=== PATIENT | male | born 1960 | race Caucasian/White ===

== ENCOUNTER 2017-10-21 17:13 | Emergency (ER) | payer OTHER ==
[2017-10-21] MEDS ORDERED: Ketorolac Tromethamine 30 MG/ML VIAL ONE (18:09)
[2017-10-21 18:14] LABS: #Basophils 0.1 thou/uL (0.0-0.2); #Lymphocytes 1.1 thou/uL (1.20-3.40); #Monocytes 0.4 thou/uL (0.11-0.59); #Neutrophils 11.2 thou/uL (1.40-6.50); %Basophils 0.8 % (0.0-1.0); %Eosinophils 0.3 % (0.0-10.0); %Lymphocytes 8.2 % (21.0-51.0); %Monocytes 3.3 % (0.0-10.0); %Neutrophils 87.3 % (42.0-75.0); Hemoglobin 15.3 g/dL (14.0-18.0); Mean Corpuscular HGB CONC 33.5 g/dL (32.0-36.0); Mean Corpuscular Hemoglobin 31.2 pg (27.0-31.0); Mean Corpuscular Volume 93.4 fl (80.0-94.0); Mean Platelet Volume 6.8 fL (7.4-10.4); Platelet Count 226 thou/uL (130-400); RBC Distribution Width 11.4 % (11.5-14.5); Red Blood Cell (RBC) Count 4.91 mill/uL (4.70-6.10); White Blood Cell (WBC) Count 12.8 thou/uL (4.8-10.8)
[2017-10-21 18:19] LABS: Bilirubin Negative (Negative); Blood, Urine Large (Negative); Clarity Cloudy (Clear); Glucose, Urine (Dipstick) Negative (Negative); Leukocyte Negative (Negative); Nitrite Negative (Negative); Protein, Urine (Dipstick) Negative (Neg-Trace); Specific Gravity, Urine 1.015 (1.005-1.030); Urobilinogen 0.2 mg/dL (0.2-1.0)
[2017-10-21 18:21] LABS: Bacteria/HPF None Seen HPF (None Seen); Crystals/HPF None Seen HPF (Negative); Hyaline Casts/LPF NONE SEEN LPF (0-3 Hyaline); Other Casts/LPF None Seen LPF (0-3 Hyaline); Oval Fat Bodies/HPF None Seen HPF (None Seen); RBC/HPF GREATER THAN 50-TNTC HPF (0-3); Renal Epithelial None Seen HPF (0-3); Sperm/HPF None Seen HPF (None Seen); Squamous Epithelial None Seen HPF (0-3); Transitional Epithelial NONE SEEN HPF (0-3); Trichomonas/HPF None Seen HPF (None Seen); WBC/HPF None Seen HPF (0-3); Yeast-All Forms None Seen HPF (None Seen)
[2017-10-21 18:26] LABS: ALT (SGPT) 28 U/L (8-55); AST (SGOT) 22 U/L (5-34); Albumin 4.3 g/dL (3.5-5.0); Alkaline Phosphatase 70 U/L (40-150); Anion Gap 13 mmol/L (10-20); BUN (Urea Nitrogen) 15 mg/dL (8.4-25.7); Bilirubin, Total 0.7 mg/dL (0.2-1.2); Calc. Creatinine Clearance 0 mL/min (70-130); Calcium 9.5 mg/dL (7.8-10.44); Carbon Dioxide 28 mmol/L (22-29); Chloride 102 mmol/L (98-107); Estimated GFR-MDRD 66; Globulin 3.2 g/dL (2.4-3.5); Glucose 189 mg/dL (70-105); Potassium 4.3 mmol/L (3.5-5.1); Protein, Total 7.5 g/dL (6.0-8.3); Sodium 139 mmol/L (136-145)
--- NOTE | 2017-10-21 20:45 | CT ---
CT ABDOMEN AND PELVIS WITHOUT CONTRAST 10/21/[address] of the abdomen and pelvis was done emergently for evaluation of right flank pain. Axial sli shruthi were acquired, then coronal reconstructions were done. There is a 4 to 5 mm calculus in the mid right ureter at approximately the L5-S1 level. It is causing minimal right hydronephrosis. No renal masses were seen within the limitations of a noncontrast stud y. No large renal calculi were seen. The prostate is mildly enlarged and there may be some mild shaunna ntric thickening of the urinary bladder. Elsewhere, the exam was fairly unremarkable. The lung bases are clear. There are multiple cystic area s scattered throughout the liver, the largest measuring about 2.4 cm in size. These are probably all simple cysts. The hepatic and splenic sizes and appearance of the spleen, adrenal glands, and gallbla dder were within normal limits. Given a noncontrast study. The aorta shows no aneurysm. The bowel shows no dilation, thickening, or inflammatory change around it. There is no free air or f ree fluid. CT of the pelvis was remarkable mainly for the mild prostatic enlargement and mild bladder wall thick ening. No pelvic masses or inflammatory changes were seen. Incidentally noted on the study were cramer es of a degenerated disc at L5-S1. IMPRESSION: 1. 4 to 5 mm right ureteral calculus at the L5-S1 level causing minor right hydronephrosis. 2. Scattered hepatic cysts. 3. Mild prostatic enlargement, possibly with mild bladder wall thickening. POS: HOME
== END 2017-10-21 18:39 | disposition home or self-care (01) ==
LOC: BURERS 17:13
DX: N13.2 Hydronephrosis with renal and ureteral calculous obstruction (principal); F90.9 Attention-deficit hyperactivity disorder, unspecified type; Z79.899 Other long term (current) drug therapy
CPT/HCPCS: 74176; 80053; 81003; 81015; 85025; 96374; 96375; J1885

== ENCOUNTER 2019-08-08 10:25 | Emergency (ER) | payer OTHER ==
[2019-08-08] MEDS ORDERED: Triple Antibiotic Oint 1 GM Packet ONE (11:18)
== END 2019-08-08 11:39 | disposition home or self-care (01) ==
LOC: BURERS 10:25
DX: S61.052A Open bite of left thumb without damage to nail, initial encounter (principal); F90.9 Attention-deficit hyperactivity disorder, unspecified type; W54.0XXA Bitten by dog, initial encounter
CPT/HCPCS: 99283